=== PATIENT | male | born 1970 | race Caucasian/White ===

== ENCOUNTER → 2023-10-24 15:02 | Outpatient (REF) | payer BC, SELFPAY | LOC: HWRAD 15:02 | PROVIDERS: ATTENDING PHYSICIAN Family Medicine | DX: R91.8 Other nonspecific abnormal finding of lung field (principal); Z87.891 Personal history of nicotine dependence | CPT/HCPCS: 71271 ==

== ENCOUNTER → 2024-01-25 16:33 | Outpatient (REF) | payer BC, SELFPAY | LOC: UCDH 16:33 | PROVIDERS: ATTENDING PHYSICIAN Physician Assistant Medical; FAMILY PHYSICIAN Family Medicine | DX: R05.3 Chronic cough (principal) | CPT/HCPCS: 71046 ==

== ENCOUNTER → 2024-12-04 14:11 | Outpatient (REF) | payer BC, SELFPAY | LOC: HWRAD 14:11 | PROVIDERS: ATTENDING PHYSICIAN Family Medicine | DX: Z87.891 Personal history of nicotine dependence (principal); Z12.2 Encounter for screening for malignant neoplasm of respiratory organs | CPT/HCPCS: 71271 ==

== ENCOUNTER 2025-01-03 06:55 | Emergency (ER) | payer BC, SELFPAY ==
[2025-01-03 07:09] VITALS: BP 182/127
--- NOTE | 2025-01-03 07:55 | ED.GENMED ---
History of Present Illness
General
Chief Complaint: Headache
Source: patient
Exam Limitations: none
Time Seen by Provider: 01/03/25 07:26
History of Present Illness
History of Present Illness:
54-year-old male on Suboxone with history of asthma presents 5 days after testing positive for COVID with increased headache nausea and vomiting. He states he cannot keep anything down. He is worried about dehydration. He has been using an
inhaler steroid as well as Zithromax that was prescribed at the urgent care. No other complaints at this time. He denies abdominal pain. He notes a headache with some lightheadedness. No other complaints at this time
Past History
Past History
ED Past Medical History: HTN and Hypercholesterolemia
ED Past Surgical History: Orthopedic, Tonsilectomy and Other
Social History
Tobacco: Smoker
Personal:
Living: with family
Employment: Employed
Family History
Family History: Negative Early CAD
Phy Exam
Physical Exam
Physical Exam:
General: Well-appearing male no acute respiratory distress HEENT: Normal cephalic atraumatic
Heart: Regular rate and rhythm
Lungs: Wheeze bilaterally
Abdomen is soft nontender
Extremities: No cyanosis
Skin warm no rash
Course
Orders/Labs/Results
Orders:
Orders
01/03/25 07:51
0.9% Sodium Chloride 1000 ml [Nss] 1,000 ml IV BOLUS
Ipratropium/Albuterol Sulfate [Duoneb] 3 ml INH R NOW STA
Ketorolac [Toradol] 15 mg IV NOW STA
Ondansetron Injectable [Zofran] 4 mg IV NOW STA
01/03/25 08:07
Complete Blood Count/With Diff Urgent
Comprehensive Metabolic Panel Urgent
01/03/25 10:19
Acetaminophen [Tylenol] 650 mg PO NOW STA
Abnormal Lab Results
01/03/25
08:07
Monocytes % 10.9 H %
(1.7-9.3)
Sodium 134 L mmol/L
(135-145)
Creatinine 0.6 L mg/dL
(0.7-1.3)
Glucose 105 H mg/dl
(70-99)
01/03/25 08:07
01/03/25 08:07
Vital Signs
Initial and Last Documented VS:
Initial Vital Signs
Temp Pulse Resp BP Pulse Ox
99.0 F 95 18 182/127 99
01/03/25 07:09 01/03/25 07:09 01/03/25 07:09 01/03/25 07:09 01/03/25 07:09
Last Documented Vital Signs
Temp Pulse Resp BP Pulse Ox
99.0 F 64 15 136/89 95
01/03/25 07:09 01/03/25 11:07 01/03/25 11:07 01/03/25 11:07 01/03/25 10:14
MDM/Problems Addressed
Differential Diagnosis Includes:
Patient with known COVID with persistent wheezing nausea vomiting and diarrhea. Suspect some element of volume depletion or dehydration. Abdomen exam benign considered CT but not indicated. Ordered nebulizer for the wheezing fluids Toradol and
Zofran.
*Pulse Oximetry
SaO2: 98
Oxygen Mode of Delivery: Room air
Patient hypoxic: no
*Critical Care Note
Total Time (30-74mins, 75-104mins- exclusive of procedures): Not Applicable
Update Note
Update Note:
Labs reviewed without significant finding. Patient feeling better now tolerating oral fluids headache is improved. Suspect symptoms are related to underlying COVID illness and dehydration. Recommended continued hydration at home. Will add Zofran
if he needs to for nausea
Patient nontoxic not meningitic on exam. No indication for urgent LP
ED Attending Note
-
Portions of this chart may have been created with voice recognition software.� Occasional wrong word or��sound alike� substitutions may have occurred due to the inherent limitations of voice recognition software.
Discharge Plan
Departure
Patient Disposition: Home (Routine Discharge)
Date of Disposition: 01/03/25
Time of Disposition: 11:14
Patient with high blood pressure during this ER visit?: No
Discharge Problem:
Acute viral syndrome
Prescriptions:
New
ondansetron 4 mg tablet,disintegrating
4 mg PO Q8H PRN (Reason: nausea and vomiting) Qty: 7 0RF
No Action
prednisone 10 MG tablet
10 mg PO .TAPER Qty: 26 0RF
Rx Instructions:
Take 40mg daily x2days, 30mg daily x3days,
20mg daily x3days, 10mg daily x3days.
Referrals:
Jose Armando Peralta DO [Family Provider, Family Practice]
Activity Restrictions/Additional Instructions:
Rest. Stay hydrated. Use ibuprofen or Tylenol for fever or headache. Use Zofran as needed for nausea. Return if worse otherwise
Interventions
Interventions:
*Risk Screen - Suicide Last Done: 01/03/25 07:09
*General Assessment Last Done: 01/03/25 07:09
*Neglect/Abuse Screening Last Done: 01/03/25 07:38
*ED- Fall Risk Assessment Last Done: 01/03/25 07:38
*ED COVID-19 Vaccine History Last Done: 01/03/25 07:09
*ED Influenza Vaccine History Last Done: 01/03/25 07:09
ED- Neurological Assessment Last Done: 01/03/25 07:39
Discharge Date and Time
Print Language: MACEDONIAN
[2025-01-03] MEDS: NSS 1000 IV (08:07)
[2025-01-03] MEDS: ZOFRAN 4 MG IV (08:08)
[2025-01-03] MEDS: TORADOL 15 MG IV (08:08)
[2025-01-03] MEDS: DUONEB 3 ML INH (08:08)
[2025-01-03 08:22] LABS: Hematocrit 45.5 % (39.0-52.0); Hemoglobin 15.6 g/dL (13.0-18.0); Mean Corp Hgb Conc. 34.3 g/dL (33.0-37.0); Mean Corpuscular Volume 90.1 fL (80.0-94.0); Nucleated Red Blood Cells % 0 % (-); Platelet Count 267 10^3/uL (130-400); Red Cell Dist. Width 11.9 % (11.5-14.5)
[2025-01-03 08:37] LABS: ALT (SGPT) 18 U/L (0-50); AST (SGOT) 19 U/L (17-59); Albumin 4.8 g/dl (3.5-5.0); Alkaline Phosphatase 64 U/L (38-126); Blood Urea Nitrogen 15 mg/dl (9-20); Calcium 9.7 mg/dl (8.4-10.2); Carbon Dioxide 26 mmol/L (22-30); Chloride 101 mmol/L (98-107); Estimated Creatinine Clearance > 125 ml/min; Glucose 105 mg/dl (70-99); Potassium 3.9 mmol/L (3.5-5.1); Sodium 134 mmol/L (135-145); Total Protein 7.5 g/dl (6.3-8.2); eGFR > 60.00
[2025-01-03 09:00] VITALS: BP 133/98
[2025-01-03 10:14] VITALS: BP 133/94
[2025-01-03] MEDS: TYLENOL 650 MG PO (10:27)
[2025-01-03 11:07] VITALS: BP 136/89
== END 2025-01-03 11:26 | disposition home or self-care (01) ==
LOC: EMR 06:55
PROVIDERS: Physician Assistant; EMERGENCY PHYSICIAN Student in an Organized Health Care Education/Training Program; FAMILY PHYSICIAN Family Medicine
DX: B34.9 Viral infection, unspecified (principal); I10 Essential (primary) hypertension; E78.00 Pure hypercholesterolemia, unspecified; J45.909 Unspecified asthma, uncomplicated; F17.200 Nicotine dependence, unspecified, uncomplicated; Z86.16 Personal history of COVID-19
CPT/HCPCS: 99284; 96374; 96375; 96361 ×2; 94640; 80053; 85025